=== PATIENT | male | born 1995 | race African-American/Black ===

== ENCOUNTER 2024-05-16 18:34 | Emergency (ER) | payer OTHER ==
[2024-05-16] MEDS: Cyclobenzaprine 10 MG Tab PO ONE (20:27)
[2024-05-16] MEDS: Ketorolac 60 MG/2 ML SDV IM ONE (20:27)
== END 2024-05-16 20:48 | disposition home or self-care (01) ==
LOC: JD.ED 18:34
DX: M54.6 Pain in thoracic spine (principal); M54.2 Cervicalgia; R51.9 Headache, unspecified; Z88.0 Allergy status to penicillin; V89.2XXA Person injured in unspecified motor-vehicle accident, traffic, initial encounter
CPT/HCPCS: 70450; 70450-26; 70486; 70486-26; 72125; 72125-26; 72128; 72128-26; 96372; 99284; A9270-GY; J1885